=== PATIENT | female | born 1970 | race Caucasian/White ===

== ENCOUNTER 2016-10-22 14:14 | Emergency (ER) | payer BC, OTHER ==
--- NOTE | 2016-10-22 16:09 | UC ---
Shoulder Pain HPI - HPI Summary HPI Summary: 2 WEEKS OF LEFT SHOULDER PAIN, WORSE WITH MVMT. 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 WAS DOING A LOT OF HEAVY LIFTING AND MOVING. FEELS WORSE AT THE END OF THE DAY AFTER HEAVY USE OF HER ARMS. - History of Current Complaint Chief Complaint: UCUpperExtremity Stated Complaint: SHOULDER INJURY Time Seen by Provider: 10/22/16 16:00 Hx Obtained From: Patient Onset/Duration: Sudden Onset, Lasting Weeks, Still Present Timing: Constant Severity Initially: Mild Severity Currently: Moderate Pain Intensity: 5 Pain Scale Used: 0-10 Numeric Character: Aching Aggravating Factor(s): Movement Alleviating Factor(s): Rest Associated Signs And Symptoms: Negative: Fever, Weakness Related History: Dominant Hand Right - Allergies/Home Medications Allergies/Adverse Reactions: Allergies Allergy/AdvReac Type Severity Reaction Status Date / Time No Known Allergies Allergy Verified 10/22/16 14:51 PMH/Surg Hx/FS Hx/Imm Hx Cardiovascular History Of: Reports: Hypertension - ON DAILY MEDS GI/ History Of: Reports: Gall Bladder Disease - HX SONDRA Cancer History Of: Denies: Breast Cancer - Surgical History Surgical History: Yes Surgery Procedure, Year, and Place: 1992 BILATERAL TUBAL LIGATION [facility] [place]. 1993 GALLBLADDER [facility] [place]. 2011 FALLOPIAN TUBES AND APPENDECTOMY [facility] [place] 2011 GASTRIC BYPASS [facility] [place] 2013 UTERINE ABLATION [facility] [place], 2013 Hyste[place] [place] - Family History Known Family History: Positive: Hypertension - Social History Alcohol Use: Rare Substance Use Type: None Smoking Status (MU): Never Smoked Tobacco - Immunization History Most Recent Influenza Vaccination: 2012 Most Recent Tetanus Shot: ? Most Recent Pneumonia Vaccination: NONE Review of Systems Constitutional: Negative Skin: Negative Respiratory: Negative Cardiovascular: Negative Gastrointestinal: Negative Musculoskeletal: Myalgia All Other Systems Reviewed And Are Negative: Yes Physical Exam Triage Information Reviewed: Yes Appearance: Well-Appearing, No Pain Distress, Well-Nourished Vital Signs: Initial Vital Signs Temp 98.0 F 10/22/16 14:44 Pulse 56 10/22/16 14:44 Resp 18 10/22/16 14:44 BP 102/57 10/22/16 14:44 Pulse Ox 98 10/22/16 14:44 Vital Signs Reviewed: Yes Eyes: Positive: Conjunctiva Clear ENT: Positive: Hearing grossly normal Neck: Positive: Supple, Nontender, No Lymphadenopathy Respiratory: Positive: No respiratory distress, No accessory muscle use Cardiovascular: Positive: Pulses Normal Abdomen Description: Positive: Soft Musculoskeletal: Positive: ROM Intact, No Edema, Other: - MILDLY TTP DIFFUSELY OVER LEFT SHOULDER Neurological: Positive: Alert Psychological: Positive: Age Appropriate Behavior Skin: Negative: rashes Diagnostics - Radiology LEFT SHOULDER XRAY Xray Interpretation: No Acute Changes - 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 Radiology Interpretation Completed By: Radiologist Shoulder Course/Dx - Course Course Of Treatment: SLING NEEDED FOR COMFORT. MELOXICAM. NOTE FOR WORK PROVIDED. REST. F/U ORTHO IF NEEDED. - Differential Dx/Diagnosis Provider Diagnoses: LEFT SHOULDER SPRAIN Discharge - Discharge Plan Condition: Stable Disposition: HOME Prescriptions: Meloxicam [Mobic] 7.5 mg PO BID PRN #30 tab PRN Reason: Pain Patient Education Materials: Shoulder Sprain (ED) Forms: *Work Release Referrals: Rei Garcia MD [Medical Doctor] - If Needed Anisha Wilson NP [Primary Care Provider] - If Needed Additional Instructions: XRAY TODAY DOES NOT SHOW ANY ACUTE INJURY. REST. MELOXICAM TWICE DAILY NEEDED. CALL ORTHO FOR FOLLOW-UP APPT IF NOT IMPROVING OVER THE NEXT WEEK.
--- NOTE | 2016-10-22 16:53 | RAD ---
Indication: Left shoulder pain. 3 views of the left shoulder demonstrates AC joint arthritis. There is no fracture or dislocation. No other bone or joint abnormality is identified. 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
[2016-10-22 16:55] VITALS: BP 111/71
== END 2016-10-22 17:29 | disposition home or self-care (01) ==
LOC: UCEAST 14:14
DX: S43.402A Unspecified sprain of left shoulder joint, initial encounter (principal); X50.0XXA Overexertion from strenuous movement or load, initial encounter; Y93.89 Activity, other specified; Y92.9 Unspecified place or not applicable; Y99.0 Civilian activity done for income or pay; I10 Essential (primary) hypertension; Z90.49 Acquired absence of other specified parts of digestive tract; Z98.84 Bariatric surgery status; Z90.710 Acquired absence of both cervix and uterus
CPT/HCPCS: 99211; G0463